=== PATIENT | female | born 1950 | race Caucasian/White ===

== ENCOUNTER 2024-08-23 09:33 | Day surgery (SDC) | payer MEDICARE, SELFPAY ==
[2024-08-23] VITALS (8 sets, daily range): BP systolic 112–163; BP diastolic 40–83; PULSE 77–87; RESP 14–18; TEMP 36.4–36.7; O2SAT 95–100; BMI 34.0
[2024-08-23] MEDS: Vancomycin IV 1,000 MG/200 ML BAG 200 MG IV (10:13)
[2024-08-23] MEDS: 0.9% Normal Saline (500mL Bag) 500 ML 15 ML IV (10:13)
--- NOTE | 2024-08-23 10:35 | PRE.ANES_ITS ---
ASA Classification* ASA Classification ASA Classification: 3 Assessment & Plan Anesthesia* Anesthesia Assessment Anesthesia Assessment: Discussed sedation and/or anesthesia options, risks, benefits, and alternatives with patient/parents/legal guardian/POA. Questions invited. The patient/parents/legal guardian/POA seems to understand and agrees to proceed with anesthesia plan. Reviewed the physical assessment, medical history, allergy history and patient home medications list prior to surgery/procedure/anesthetic and documented any changes. Performed airway and anesthesia risk assessments. Anesthesia Type Anesthesia Type: MAC History Source History Obtained from:: Patient and Chart Anesthesia Focused Assessment* Temperature: 97.7 F Pulse Rate: 82 Blood Pressure: 163/79 Respiratory Rate: 16 Pulse Ox: 98 Oxygen Delivery Method: Room Air Airway Assessment Mouth opens: >3 cm Mallampati Score: III Teeth Condition: Caps/Crowns (Patient has wanted to crowns. They are tight.) Neck Range of motion (ROM): Limited ROM Comment: Somewhat decreased extension. 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 When Was Last Pacemaker Check QUESTION #4 FULL TEXT: You/Your Family Experience fever (hyperthermia) with Anesthesia Last Oral Intake Last Oral intake: Last Oral Intake NPO since 23:00 08/23/24 10:02 Meds taken in AM with sips of water? Meds patient instructed to take am of surgery PONV PONV - nursery school attendant: PONV - nursery school attendant Female Yes 08/09/24 14:12 HX of Motion Sickness Yes 08/09/24 14:12 HX of N/V After Surgery Yes 08/09/24 14:12 Non-Smoker No 08/09/24 14:12 Duration of Surgery greater No 08/09/24 14:12 than 60 minutes Number of Risk Factors 3 08/09/24 14:12 PONV Score Moderate Risk 08/09/24 14:12 Height & Weight Height & Weight: Anesthesia: Height & Weight Height 5 ft 3 in 08/23/24 10:02 Weight: 87 kg 08/23/24 10:02 Body Mass Index (BMI) 34.0 08/23/24 10:02 Respiratory Assessment Respiratory Assessment - nursery school attendant: Respiratory Tract Infection Hx - nursery school attendant Hx Respiratory Tract Infection No 08/09/24 14:12 STOP Sleep Apnea STOP Sleep Apnea - nursery school attendant: STOP Sleep Apnea - nursery school attendant Hx Hypertension Yes 08/09/24 14:12 Hx Sleep Apnea No 08/09/24 14:12 CPAP BIPAP Do you snore loudly (louder No 08/09/24 14:12 than talking or can be heard Do you often feel tired/ No 08/09/24 14:12 fatigued/ sleepy during daytime? Has anyone observed you stop No 08/09/24 14:12 breathing during sleep? STOP Results Negative 08/09/24 14:12 QUESTION #5 FULL TEXT : Do you snore loudly (louder than talking or can be heard through closed doors)? 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 Specify any problems Hx of Preganancy in last 3 No 08/09/24 14:12 Months Nurse Filling Out Transfusion [facility] 08/09/24 14:12 & Questions: Date: 08/09/24 08/09/24 14:12 Time: 14:25 08/09/24 14:12 Patient unable to answer at this time (ie. confused, unrespo /Reproduction History /Reproductive History - nursery school attendant: /Reproductive Hx- nursery school attendant Hx Now No 08/09/24 14:12 Gestational Age (in weeks): EDC: Hx Hx Para Hx Section SAB No 08/09/24 14:12 Active Medications Active Medications: Current Medications Generic Name Dose Route Start Last Admin Trade Name Freq PRN Reason Stop Dose Admin Vancomycin HCl 1,000 mg in 200 mls @ 200 mls/hr 08/23/24 11:10 08/23/24 10:13 Vancomycin IV 08/23/24 12:09 200 mls/hr PREOP ONE Administration Sodium Chloride 500 mls @ 0 mls/hr 08/23/24 09:45 08/23/24 10:13 IV 15 mls/hr .Q0M DEL Administration KVO PFSH Medical History Wears hearing aid Wears glasses Anxiety Alcohol use Arthritis Bladder disease Fatty liver DVT (deep venous thrombosis) History of ulceration Gastric reflux Former smoker Emphysema, unspecified Leg cramps History of echocardiogram Hypertension History of irregular heartbeat Home Medications ?Medication ?Instructions ?Recorded ?Last Taken ?Type escitalopram oxalate 10 mg tablet 10 mg PO DAILY 08/09/24 Unknown History losartan 50 mg-hydrochlorothiazide 1 tab PO DAILY 08/09/24 Unknown History 12.5 mg tablet propranolol 10 mg tablet 10 mg PO TID PRN PRN anxiety 08/09/24 Unknown History Allergy/AdvReac Type Severity Reaction Status Date / Time latex Allergy Intermediate Itching Verified 08/23/24 09:55 hydromorphone AdvReac Intermediate Vomiting Verified 08/23/24 09:55 suture AdvReac Unknown Swelling Verified 08/23/24 09:56 Surgical History History of surgery on wrist History of bilateral breast reduction surgery History of blepharoplasty History of bilateral knee replacement History of bilateral oophorectomy History of abdominoplasty History of Social History Smoking Status: Former smoker Review of Systems (Anesthesia) ROS Narrative System reviewed and no additional complaints, except as documented.
--- NOTE | 2024-08-23 11:42 | PCM.OPRPT ---
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 Type of Anesthesia: MAC/Supplemental/Local RN Documented Start/Stop Times: Operation Date: 08/23/24 11:10 Case Time Into Pre-Op 08/23/24 09:42 Out of Pre-Op 08/23/24 11:31 Anesthesia Start 08/23/24 11:39 Into Room 08/23/24 11:39 Procedure Start 08/23/24 11:55 Procedure End 08/23/24 12:25 Anesthesia End 08/23/24 12:28 Out of Room 08/23/24 12:28 Into Recovery 08/23/24 12:30 Procedure Start Time: 11:55 Procedure Stop Time: 12:25 Select all DRAINS/GRAFTS/IMPLANTS that apply: Implanted device Implanted device details: Axonics lead and lead extension Estimated Blood Loss: 5cc Specimen collected: No Description of surgery: The patient is a 74-year-old female who has failed multiple treatments for her incomplete voiding issues and leakage who now presents for Axonics stage I trial. Informed consent has been obtained. She was taken to the operating room and placed on the the operating room table in a prone position. She was appropriately padded and secured to the table. Anesthesia monitored the head, neck, airway, IV access and vital signs throughout the case. Once anesthesia was appropriately administered, she was prepped and draped in usual sterile fashion. Using fluoroscopic guidance, the bony structures of the pelvis were outlined onto her skin. The area overlying her right S3 foramen was infiltrated with local anesthetic. Using the Axonics needle, the S3 foramen was intubated as confirmed on fluoroscopy in both AP and lateral views. The skin was then incised and the dilator was passed over the guidewire which was placed through the needle after the obturator was removed. At this time the lead was inserted through the dilator sheath and had a good appearance in both AP and lateral views fluoroscopically. On testing there was good beba and toe response to stimulation. The sheath was then removed leaving the lead tines into position. The pocket site was selected and treated with local anesthetic. Incision was made and Bovie cautery was used for hemostatic control. The tunneling device was used to pull the lead into the pocket site the lead was dried and inserted into the lead extension and secured using the torque wrench. The lead extension was then tunneled to the contralateral side. The incisions were closed in 2 layers using 3-0 Vicryl and 4-0 Vicryl subcuticular closure. Skin glue was applied to the pocket incision as well. The lead extension was secured using Steri-Strips. At this time a drain sponge was applied. The lead extension was secured into the battery using Steri-Strips. An OpSite secured everything to her back and cloth tape was placed on top. The patient was then awakened and taken to the recovery room in good condition. There were no complications during this procedure. Surgical Findings: No abnormal findings Complications Complications: No Admit VTE Documentation VTE Present on Admission: No VTE Mechan Device Prophylaxis: None VTE Pharm Prophylaxis ordered?: No Reason prophylaxis not ordered: Treatment Not Indicated
--- NOTE | 2024-08-23 11:52 | RAD_ITS ---
STUDY: X-RAY - PELVIS REASON FOR EXAM: Female, 74 years old. AXONICS STAGE 1 TECHNIQUE: One view of the pelvis was obtained. COMPARISON: None. Technique: 2 fluoroscopic images obtained, 29.3 seconds of fluoroscopy, dose adjusted 15.58mGy FINDINGS: 2 separate intraoperative studies performed as the patient underwent AXONICS STAGE 1 placement RAD/Pelvis 1 or 2 Views IMPRESSION: No complications noted during AXONICS placement Electronically Signed: Lenard Dutton MD at 14:46 EST ,
[2024-08-23] MEDS: Lidocaine 1% /Epi 1:100 (20ml) 20 ML Vial (12:14)
--- NOTE | 2024-08-23 12:35 | PCM.POST.ANE ---
Anesthesia: Postop Eval I Current Vital Signs Temperature: 97.5 F Pulse Rate: 80 Blood Pressure: 136/64 Respiratory Rate: 14 Pulse Ox: 97 Assessment Airway patent: Yes Spontaneous unlabored respirations: Yes nausea: No Vomiting: No Anesthesia Complication: No Fluid Hydration Crystalloid volume administer (ml): 400 Total IV fluid infused: 400 Progress Note Anesthesia document: Postop Eval 1 completed: Yes
--- NOTE | 2024-08-23 12:38 | EX.PCM.DISCH ---
Discharge Instructions Diet Discharge Diet: No restrictions Activity Discharge Activity: May Not Shower May resume sexual activity in: 4 weeks Additional Activity Instructions:: No exercise or strenuous activity Dressing / Incision Call your doctor if your incision/area has: Continuous Slow Oozing, Sudden Increased Bleeding, Increased Pain/ Swelling and Foul Smelling Discharge Call your doctor if you observe: Fever of 101 or Higher, Inability to urinate and Inability to have a bowel movement Suture Line Care: Avoid Pulling/Pushing and Avoid Pinching/Bending Change Dressing in: do not change dressing Remove Dressing in: do not remove dressing Cleanse incision/area with: Keep Dressing Clean & Dry Follow Up Care Please Follow Up With: Dipti Mirza MD When: Next week with voiding diary. Test Results: Test results from this visit will be discussed in further detail at your follow-up appointment, if applicable. Discharge Plan Admission Attending Provider: Dipti Mirza Primary Care Provider: MARCELLE CARVAJAL Instructions Print Language: Korean Discharge Orders/Prescriptions Prescriptions: New oxycodone-acetaminophen 5-325 mg tablet 1 tab PO Q8H PRN (Reason: pain) 3 Days Qty: 10 0RF cephalexin 500 mg capsule 500 mg PO Q12 3 Days Qty: 6 0RF Continued escitalopram oxalate 10 mg tablet 10 mg PO DAILY propranolol 10 mg tablet 10 mg PO TID PRN PRN (Reason: anxiety) losartan-hydrochlorothiazide 50-12.5 mg tablet 1 tab PO DAILY Disposition Disposition (needs filled in before D/C Order can be placed): Home, Self Care
--- NOTE | 2024-08-23 12:41 | SUR.PHASEI ---
RESTLESS AT TIMES. REPORTING PAIN IN BUTTOCKS, NOT LOWER BACK, STATES MY ASS HURTS. ASSISTED TO REPOSITION. AXONICS REP HERE ADJUSTING MACHINE.
--- NOTE | 2024-08-23 19:11 | POSTOPAN2_ITS ---
Anesthesia Postop Eval I Sum Postop Eval Completion status Anesthesia document: Postop Eval 1 completed: Yes Anesthesia Postop Eval I Summary Anesthesia Postop Eval I Summary: Anesthesia Postop Eval I: Assessment Summary Airway patent Yes 08/23/24 12:35 [email or web address] Spontaneous unlabored Yes 08/23/24 12:35 [email or web address] respirations Mental status nausea No 08/23/24 12:35 [email or web address] Vomiting No 08/23/24 12:35 [email or web address] Anesthesia Postop Eval I: Fluid Summary Crystalloid volume administer 400 08/23/24 12:35 [email or web address] (ml) Colloids volume administered ( ml) Blood Product volume administered (ml) Total IV fluid infused 400 08/23/24 12:35 [email or web address] Anesthesia Postop Eval I: Summary Notes Anesthesia Complication No 08/23/24 12:35 [email or web address] Anesthesia Complication Comment: Post-operative progress note Anesthesia: Postop Eval II Evaluation Mental status: Awake and Calm Pain Level: 1 nausea: No Vomiting: No Complications Anesthesia Complication: No
--- NOTE | 2024-08-23 19:11 | PCM.POSTANE2 ---
Anesthesia Postop Eval I Sum Postop Eval Completion status Anesthesia document: Postop Eval 1 completed: Yes Anesthesia Postop Eval I Summary Anesthesia Postop Eval I Summary: Anesthesia Postop Eval I: Assessment Summary Airway patent Yes 08/23/24 12:35 [email or web address] [email or web address] Spontaneous unlabored Yes 08/23/24 12:35 [email or web address] [email or web address] respirations Mental status nausea No 08/23/24 12:35 [email or web address] [email or web address] Vomiting No 08/23/24 12:35 [email or web address] [email or web address] Anesthesia Postop Eval I: Fluid Summary Crystalloid volume administer 400 08/23/24 12:35 [email or web address] [email or web address] (ml) Colloids volume administered ( ml) Blood Product volume administered (ml) Total IV fluid infused 400 08/23/24 12:35 [email or web address] [email or web address] Anesthesia Postop Eval I: Summary Notes Anesthesia Complication No 08/23/24 12:35 [email or web address] [email or web address] Anesthesia Complication Comment: Post-operative progress note Anesthesia: Postop Eval II Evaluation Mental status: Awake and Calm Pain Level: 1 nausea: No Vomiting: No Complications Anesthesia Complication: No
== END 2024-08-23 13:43 | disposition home or self-care (01) ==
LOC: SDC 09:38 → AC 09:39
PROVIDERS: Referring Provider Urology; Visit Provider Urology
PROC: (CPT 64561; principal; 2024-08-23 11:00)
DX: N39.41 Urge incontinence (principal); N31.9 Neuromuscular dysfunction of bladder, unspecified; I10 Essential (primary) hypertension; Z79.899 Other long term (current) drug therapy; Z87.891 Personal history of nicotine dependence
CPT/HCPCS: 64561; 00300; 72170; 76000

== ENCOUNTER 2024-09-06 07:51 | Day surgery (SDC) | payer MEDICARE, SELFPAY ==
[2024-09-06] VITALS (8 sets, daily range): BP systolic 99–152; BP diastolic 57–83; PULSE 64–70; RESP 16–18; TEMP 36.1–36.8; O2SAT 92–98; BMI 33.5
--- NOTE | 2024-09-06 08:22 | PCM.OPRPT ---
Operative Report (Standard) Operative Information Date of Procedure: 09/06/24 Pre-Operative Diagnosis: Urge incontinence Post-Operative Diagnosis: same Surgery/Procedure Performed: Axonics Stage 2 shell trim tool setter: Yes Animal Groomer: Jennifer Leonardo Tasks completed by first aid instructor: Closing Type of Anesthesia: MAC RN Documented Start/Stop Times: Operation Date: 09/06/24 09:35 Case Time Into Pre-Op 09/06/24 07:58 Out of Pre-Op 09/06/24 09:19 Anesthesia Start 09/06/24 09:27 Into Room 09/06/24 09:27 Procedure Start 09/06/24 09:40 Procedure End 09/06/24 09:56 Anesthesia End 09/06/24 10:03 Out of Room 09/06/24 10:03 Into Recovery 09/06/24 10:05 Out of Recovery 09/06/24 10:20 Into Phase II Recovery 09/06/24 10:21 Procedure Start Time: 09:40 Procedure Stop Time: 09:56 Select all DRAINS/GRAFTS/IMPLANTS that apply: Implanted device Implanted device details: Axonics battery Estimated Blood Loss: 5cc Specimen collected: No Description of surgery: The patient is a 74-year-old female who successfully passed a stage I trial of Axonics and now presents for implantation of the battery. Informed consent was obtained. She was taken the operating room and placed in a prone position on the operating room table. She was appropriately padded and secured to the table. Anesthesia monitored the head, neck, airway, IV access and vital signs throughout the case. Once anesthesia was appropriately administered, she was prepped and draped in usual sterile fashion. Her pocket site was opened finding no evidence of infection. The lead extension was brought into the operative field where it was removed from the lead and the contralateral side was pulled from underneath the drape removing the lead extension from the operative field completely. The pocket was carefully enlarged using blunt dissection and Bovie cautery for hemostatic control. The lead was then cleaned and inserted into the battery where it was secured using the torque wrench. The battery was placed into the pocket site. The pocket was closed in a 2 layer fashion with interrupted deep sutures followed by subcuticular closure of the skin and skin glue was applied. The patient tolerated the procedure well. She was awakened and taken to the recovery room in good condition. There were no complications during the procedure. Surgical Findings: clean pocket site, no concerns Complications Complications: No Admit VTE Documentation VTE Present on Admission: Yes VTE Mechan Device Prophylaxis: SCD's VTE Pharm Prophylaxis ordered?: No Reason prophylaxis not ordered: Treatment Not Indicated
[2024-09-06] MEDS: Vancomycin HCl 1,250 MG in 0.9% Normal Saline (250mL Bag) 250 ML 167 MG IV (08:44)
[2024-09-06] MEDS: DiphenhydrAMINE 50 MG/ML Syringe 25 MG IV (08:44)
--- NOTE | 2024-09-06 09:04 | PCM.PRE.AN2 ---
ASA Classification* ASA Classification ASA Classification: 3 Assessment & Plan Anesthesia* Anesthesia Assessment Anesthesia Assessment: Discussed sedation and/or anesthesia options, risks, benefits, and alternatives with patient/parents/legal guardian/POA. Questions invited. The patient/parents/legal guardian/POA seems to understand and agrees to proceed with anesthesia plan. Reviewed the physical assessment, medical history, allergy history and patient home medications list prior to surgery/procedure/anesthetic and documented any changes. Performed airway and anesthesia risk assessments. 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 When Was Last Pacemaker Check QUESTION #4 FULL TEXT: You/Your Family Experience fever (hyperthermia) with Anesthesia Last Oral Intake Last Oral intake: Last Oral Intake NPO since 23:00 09/06/24 08:29 Meds taken in AM with sips of No 09/06/24 08:29 water? Meds patient instructed to take am of surgery PONV PONV - bow maker production: PONV - bow maker production Female Yes 08/09/24 14:56 HX of Motion Sickness Yes 08/09/24 14:56 HX of N/V After Surgery Yes 08/09/24 14:56 Non-Smoker No 08/09/24 14:56 Duration of Surgery greater No 08/09/24 14:56 than 60 minutes Number of Risk Factors 3 08/09/24 14:56 PONV Score Moderate Risk 08/09/24 14:56 Height & Weight Height & Weight: Anesthesia: Height & Weight Height 5 ft 3 in 09/06/24 08:29 Weight: 86 kg 09/06/24 08:29 Body Mass Index (BMI) 33.5 09/06/24 08:29 Respiratory Assessment Respiratory Assessment - bow maker production: Respiratory Tract Infection Hx - bow maker production Hx Respiratory Tract Infection No 08/09/24 14:56 STOP Sleep Apnea STOP Sleep Apnea - bow maker production: STOP Sleep Apnea - bow maker production Hx Hypertension Yes 08/09/24 14:56 Hx Sleep Apnea No 08/23/24 13:00 CPAP BIPAP Do you snore loudly (louder No 08/09/24 14:56 than talking or can be heard Do you often feel tired/ No 08/09/24 14:56 fatigued/ sleepy during daytime? Has anyone observed you stop No 08/09/24 14:56 breathing during sleep? STOP Results Negative 08/09/24 14:56 QUESTION #5 FULL TEXT : Do you snore loudly (louder than talking or can be heard through closed doors)? 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 Specify any problems Hx of Preganancy in last 3 No 08/09/24 14:56 Months Nurse Filling Out Transfusion [facility] 08/09/24 14:56 & Questions: Date: 08/09/24 08/09/24 14:56 Time: 15:01 08/09/24 14:56 Patient unable to answer at this time (ie. confused, unrespo /Reproduction History /Reproductive History - bow maker production: /Reproductive Hx- bow maker production Hx Now No 08/09/24 14:56 Gestational Age (in weeks): EDC: Hx Hx Para Hx Section SAB No 08/09/24 14:56 Active Medications Active Medications: Current Medications Generic Name Dose Route Start Last Admin Trade Name Freq PRN Reason Stop Dose Admin Vancomycin HCl 1,250 mg/ 275 mls @ 167 mls/hr 09/06/24 09:35 09/06/24 08:44 Sodium Chloride IV 09/06/24 11:13 167 mls/hr PREOP ONE Administration PFSH Medical History Urge incontinence Wears hearing aid Wears glasses Anxiety Alcohol use Arthritis Bladder disease Fatty liver DVT (deep venous thrombosis) History of ulceration Gastric reflux Former smoker Emphysema, unspecified Leg cramps History of echocardiogram Hypertension History of irregular heartbeat Home Medications ?Medication ?Instructions ?Recorded ?Last Taken ?Type escitalopram oxalate 10 mg tablet 10 mg PO DAILY 08/09/24 09/05/24 History losartan 50 mg-hydrochlorothiazide 1 tab PO DAILY 08/09/24 09/05/24 History 12.5 mg tablet propranolol 10 mg tablet 10 mg PO TID PRN PRN anxiety 08/09/24 09/05/24 History oxycodone-acetaminophen 5 mg-325 1 tab PO Q8H PRN pain 3 days #10 08/23/24 Unknown Rx mg tablet tabs Allergy/AdvReac Type Severity Reaction Status Date / Time latex Allergy Intermediate Itching Verified 09/06/24 09:04 hydromorphone AdvReac Intermediate Vomiting Verified 09/06/24 09:04 suture AdvReac Unknown Swelling Verified 09/06/24 09:04 Surgical History History of surgery on wrist History of bilateral breast reduction surgery History of blepharoplasty History of bilateral knee replacement History of bilateral oophorectomy History of abdominoplasty History of Social History Smoking Status: Former smoker Review of Systems (Anesthesia) ROS Narrative System reviewed and no additional complaints, except as documented.
[2024-09-06] MEDS: Lidocaine 1% /Epi 1:100 (20ml) 20 ML Vial (09:40)
--- NOTE | 2024-09-06 10:07 | PCM.POST.ANE ---
Anesthesia: Postop Eval I Current Vital Signs Temperature: 97.8 F Pulse Rate: 68 Blood Pressure: 111/57 Respiratory Rate: 16 Pulse Ox: 94 Oxygen Delivery Method: Nasal Cannula Oxygen Flow Rate (L/min): 2 Assessment Airway patent: Yes Spontaneous unlabored respirations: Yes Mental status: Awake and Calm nausea: No Vomiting: No Anesthesia Complication: No Fluid Hydration Crystalloid volume administer (ml): 300 Total IV fluid infused: 300 Progress Note Anesthesia document: Postop Eval 1 completed: Yes
--- NOTE | 2024-09-06 10:35 | DCINST_ITS ---
Discharge Instructions Diet Discharge Diet: No restrictions Activity Discharge Activity: May Shower (On Tuesday) May resume sexual activity in: 4 weeks Additional Activity Instructions:: No strenuous activity for the next 2 weeks Dressing / Incision Call your doctor if your incision/area has: Continuous Slow Oozing, Sudden Increased Bleeding, Increased Pain/ Swelling, Increased Redness, Foul Smelling Discharge and Swelling at the incision site Call your doctor if you observe: Fever of 101 or Higher, Inability to urinate and Inability to have a bowel movement Additional Dressing/Incision Instructions:: Leave the skin glue in place until it falls off Follow Up Care Please Follow Up With: Dipti Mirza MD When: In the office in 4 weeks. Test Results: Test results from this visit will be discussed in further detail at your follow- up appointment, if applicable. Discharge Plan Admission Attending Provider: Dipti Mirza Primary Care Provider: MARCELLE CARVAJAL Instructions Print Language: Kiswahili Discharge Orders/Prescriptions Prescriptions: New cephalexin 500 mg capsule 500 mg PO Q12 3 Days Qty: 6 0RF Continued escitalopram oxalate 10 mg tablet 10 mg PO DAILY propranolol 10 mg tablet 10 mg PO TID PRN PRN (Reason: anxiety) losartan-hydrochlorothiazide 50-12.5 mg tablet 1 tab PO DAILY oxycodone-acetaminophen 5-325 mg tablet 1 tab PO Q8H PRN (Reason: pain) 3 Days Qty: 10 0RF Referrals / Follow Up: MARCELLE CARVAJAL [Other] Disposition Disposition (needs filled in before D/C Order can be placed): Home, Self Care
--- NOTE | 2024-09-06 10:48 | POSTOPAN2_ITS ---
Anesthesia Postop Eval I Sum Postop Eval Completion status Anesthesia document: Postop Eval 1 completed: Yes Anesthesia Postop Eval I Summary Anesthesia Postop Eval I Summary: Anesthesia Postop Eval I: Assessment Summary Airway patent Yes 09/06/24 10:08 [email or web address] Spontaneous unlabored Yes 09/06/24 10:08 [email or web address] respirations Mental status Awake,Calm 09/06/24 10:08 [email or web address] nausea No 09/06/24 10:08 [email or web address] Vomiting No 09/06/24 10:08 [email or web address] Anesthesia Postop Eval I: Fluid Summary Crystalloid volume administer 300 09/06/24 10:08 [email or web address] (ml) Colloids volume administered ( ml) Blood Product volume administered (ml) Total IV fluid infused 300 09/06/24 10:08 [email or web address] Anesthesia Postop Eval I: Summary Notes Anesthesia Complication No 09/06/24 10:08 [email or web address] Anesthesia Complication Comment: Post-operative progress note Anesthesia: Postop Eval II Evaluation Mental status: Awake and Calm Pain Level: 1 nausea: No Vomiting: No
--- NOTE | 2024-09-06 10:48 | PCM.POSTANE2 ---
Anesthesia Postop Eval I Sum Postop Eval Completion status Anesthesia document: Postop Eval 1 completed: Yes Anesthesia Postop Eval I Summary Anesthesia Postop Eval I Summary: Anesthesia Postop Eval I: Assessment Summary Airway patent Yes 09/06/24 10:08 [email or web address] Spontaneous unlabored Yes 09/06/24 10:08 [email or web address] respirations Mental status Awake,Calm 09/06/24 10:08 [email or web address] nausea No 09/06/24 10:08 [email or web address] Vomiting No 09/06/24 10:08 [email or web address] Anesthesia Postop Eval I: Fluid Summary Crystalloid volume administer 300 09/06/24 10:08 [email or web address] (ml) Colloids volume administered ( ml) Blood Product volume administered (ml) Total IV fluid infused 300 09/06/24 10:08 [email or web address] Anesthesia Postop Eval I: Summary Notes Anesthesia Complication No 09/06/24 10:08 [email or web address] Anesthesia Complication Comment: Post-operative progress note Anesthesia: Postop Eval II Evaluation Mental status: Awake and Calm Pain Level: 1 nausea: No Vomiting: No
== END 2024-09-06 11:23 | disposition home or self-care (01) ==
LOC: SDC 07:52 → AC 07:55
PROVIDERS: Referring Provider Urology; Visit Provider Urology
PROC: (CPT 64590; principal; 2024-09-06 09:25)
DX: N31.9 Neuromuscular dysfunction of bladder, unspecified (principal); N39.41 Urge incontinence; I10 Essential (primary) hypertension; Z79.899 Other long term (current) drug therapy; Z87.891 Personal history of nicotine dependence
CPT/HCPCS: 64590; 00300; J2405